=== PATIENT | female | born 1995 | race Caucasian/White ===

== ENCOUNTER 2019-02-22 14:46 | Emergency (ER) | payer BC ==
--- OUTSIDE RECORDS SUMMARY | 2019-02-22 14:58 | XMS REPORT | Continuity of Care Document ---
:[address] [facility] Care Team Providers Name Role Phone GEO VALLEJO Admitting Physician GEO VALLEJO Attending Physician Allergies and Intolerances No Known Allergies Medications RxNorm Medication Dose Route Instructions Start Date End Date Status BCP oral orally every day Active 3640 Doxycycline 100 mg oral orally every day Active 19790421 Naproxen 375 MG 375 mg oral orally every 12 Active Oral Tablet hours as needed. (15 days) (; administer with food or milk) Medications At Time Of Discharge RxNorm Medication Dose Route Instructions Start Date End Date Status BCP oral orally every day Active 3640 Doxycycline 100 mg oral orally every day Active 19790421 Naproxen 375 MG 375 mg oral orally every 12 Active Oral Tablet hours as needed. (15 days) (; administer with food or milk) Problems No Data in the system Procedures No data in the system Results Laboratory Results Order: CBC DIFF Specimen Source: Body Site : Legend: (G,H) = High, (GG,HH,CH,#H) = Above High Threshold, (#,L) = Low, (##, CL,#L,LL) = Below Low Threshold, (C,CC,CA,#A,A) = Abnormal LOINC Test Result Flag Range Units Date 6690-2 1WBC # Bld Auto 6.9 4.8-10.8 K/uL 12/01/2018 13:54 60807-7 1RBC # Bld 4.29 4.20-5.40 M/uL 12/01/2018 13:54 718-7 1Hgb Bld-mCnc 12.6 12.0-16.0 gm/dL 12/01/2018 13:54 4544-3 1Hct VFr Bld Auto 37.1 36.0-48.0 % 12/01/2018 13:54 787-2 1MCV RBC Auto 86.5 80.0-100.0 fL 12/01/2018 13:54 49756-6 1MCHC RBC-mCnc 34.1 30.0-36.5 % 12/01/2018 13:54 70602-3 1MCH RBC Qn 29.5 27.0-34.0 pg 12/01/2018 13:54 14385-4 1RDW RBC 11.4 11.0-15.0 % 12/01/2018 13:54 777-3 1Platelet # Bld Auto 196 130-450 K/uL 12/01/2018 13:54 53235-4 1PMV Bld Auto 8.8 6.0-12.0 fL 12/01/2018 13:54 751-8 1Neutrophils # Bld Auto 60 37-80 % 12/01/2018 13:54 20370-6 1Lymphocytes NFr Bld 31 10-50 % 12/01/2018 13:54 5905-5 1Monocytes NFr Bld Auto 8 0-12 % 12/01/2018 13:54 93309-4 1Eosinophil # Bld 1 <=8 % 12/01/2018 13:54 704-7 1Basophils # Bld Auto 0 <=3 % 12/01/2018 13:54 12155-3 1Neutrophils # Bld 4.1 1.8-8.6 K/uL 12/01/2018 13:54 731-0 1Lymphocytes # Bld Auto 2.1 0.5-5.0 K/uL 12/01/2018 13:54 742-7 1Monocytes # Bld Auto 0.6 0.0-1.3 K/uL 12/01/2018 13:54 23943-1 1Eosinophil # Bld 0.1 0.0-0.9 K/uL 12/01/2018 13:54 704-7 1Basophils # Bld Auto 0.0 0.0-0.3 K/ul 12/01/2018 13:54 Performing Lab Footnotes:[facility] - [id number] - [address] [place] [address] АЛЕКСАНДР [id number] Reference Laboratory Results Order: LYME AB with Confirmation (3 Days to Results) Specimen Source: Body Site: LOINC Code Test Result Flag Range Units Date 71931-1 1Borrelia burgdorferi <0.91 0.00-0.90 ISR 12/01/2018 Ab.IgG+Ig 1:54:00 PM Note: Negative <0.91 Equivocal 0.91 - 1.09 Positive >1.09 Performing Lab Footnotes:[facility] - [address], [place] [id number] JENNY B REYES1 Social History Code Code System Social History Description Dates Observed Observation [id number] SNOMED CT Current Smoking Unknown if ever Status smoked UNK AdministrativeGender Sex Assigned At Unknown Vital Signs No data in the system Goals Section No data in the system Health Concerns No data in the systemEncounter Diagnosis Date Code Code System Diagnosis Status R21 ICD10 RASH OTH NONSPECIFIC SKIN ERUPTION Active Advance Directives NOT APPLICABLE PT. IS A MINOR Directive Type Effective Date Logistical Engineer Notes Supporting Document Name Address Phone No Directive Type 04/16/2014 Not Specified Not Specified Not Specified None No specified 11:16:39 AM *RHIO - CONSENT IS YES Directive Type Effective Date Logistical Engineer Notes Supporting Document Name Address Phone No Directive Type 04/16/2014 Not Specified Not Specified Not Specified None No specified 10:16:38 AM Encounters Encounter Diagnosis Location Date RASH OTH NONSPECIFIC SKIN ERUPTION [facility] 12/01/2018 Family History Relationship: Father Health Problem Age At Onset Notes Crohns disease (Crohn's disease) Functional Status No data in the system Immunizations Vaccine Code Code System Vaccine Name Date Status UNKNOWN DATE OF LAST TETANUS Completed Medical Equipment No data in the system Mental Status No data in the system Assessment and Plan Assessments No data in the systemPlan Of Treatment No data in the systemPending Tests No data in the system Hospital Discharge Instructions No data in the system Reason for Visit No data in the system
--- OUTSIDE RECORDS SUMMARY | 2019-02-22 14:58 | XMS REPORT | Continuity of Care Document ---
:1995 External Reference #:[id number] Author Name Martin Roper MD Address [address] [place] [address] Care Team Providers Name Role Phone Isauro Hughes MD - Internal Medicine Care Team Information Leather Tanner Martin Roper MD - Ophthalmology Care Team Information Leather Tanner Problems Description No Information Available Social History Type Date Description Comments Sex Unknown Tobacco Use Start: Unknown Patient has never smoked Smoking Status Reviewed: 01/20/19 Patient has never smoked Allergies, Adverse Reactions, Alerts Description No Known Drug Allergies Medications Description No Active Medications Immunizations Description No Information Available Vital Signs Description No Information Available Results Description No Information Available Procedures Date Code Description Status 01/20/2019 27704 Eye Exam New Patient Comprehensive Completed Medical Devices Description No Information Available Encounters Description No Information Available Assessments Date Code Description Provider 01/20/2019 H53.121 Transient visual loss, right eye Martin Roper MD Plan of Treatment 01/20/2019 - Martin Roper MDH53.121 Transient visual loss, right eyeComments:- no sign of optic neuropathy- no sign of retinopathy- no sign of cranial neuropathy- no ophthalmic signs of increased intracranial pressure- duration, and in presence of history of migraine headache, could be most consistent with acephalgic, or ocular migraine- please call with ? or concernsFollow up:please call with ? or concerns Functional Status Description No Information Available Mental Status Description No Information Available Referrals Description No Information Available
[2019-02-22 15:04] VITALS: BP 111/61
[2019-02-22] MEDS ORDERED: Ibuprofen TAB* 600 MG PO ONE (15:04)
--- NOTE | 2019-02-22 15:04 | UC ---
FLU HPI - HPI Summary HPI Summary: 23 yo female presents with flu-like symptoms. She tells me that for the past 2 days she had felt feverish with fatigue, body aches, and sore throat. Has taken tylenol OTC with mild relief. Denies sinus symptoms, rash, cough, SOB, abdominal pain, n/v - does have a decreased appetite. - History of Current Complaint Chief Complaint: UCGeneralIllness Stated Complaint: CHILLS,BODY ACHES,FEVER Time Seen by Provider: 02/22/19 15:04 Hx Obtained From: Patient Hx Last Menstrual Period: 02/12/19 Onset/Duration: Sudden Onset Severity Currently: Moderate Severity Initially: Moderate Pain Intensity: 8 Pain Scale Used: 0-10 Numeric - Allergy/Home Medications Allergies/Adverse Reactions: Allergies Allergy/AdvReac Type Severity Reaction Status Date / Time No Known Allergies Allergy Verified 02/22/19 15:04 PMH/Surg Hx/FS Hx/Imm Hx - Additional Past Medical History Additional PMH: None - Surgical History Surgical History: None - Family History Known Family History: Positive: Non-Contributory - Social History Occupation: Student Lives: Dormitory/Roommates Alcohol Use: Occasionally Substance Use Type: None Smoking Status (MU): Never Smoked Tobacco Review of Systems All Other Systems Reviewed And Are Negative: No Constitutional: Positive: Fever, Fatigue, Other - Body aches Skin: Positive: Negative Eyes: Positive: Negative ENT: Positive: Sore Throat Respiratory: Positive: Negative Cardiovascular: Positive: Negative Gastrointestinal: Positive: Negative Neurological: Positive: Negative Psychological: Positive: Negative Physical Exam - Summary Physical Exam Summary: GENERAL: NAD. WDWN. No pain distress. SKIN: No rashes, sores, lesions, or open wounds. HEENT: Head: AT/NC Eyes: EOM intact. Conjunctiva clear without inflammation or discharge. Ears: Hearing grossly normal. TMs intact, no bulging, erythema, or edema. Nose: Nasal mucosa pink and moist. NTTP maxillary and frontal sinus. Throat: Posterior oropharynx with mild erythema and 3+ tonsillar enlargement. No exudates. Uvula midline. NECK: Supple. b/l shotty tonsillar LAD NTTP CHEST: CTAB. No accessory muscle use. Breathing comfortably and in no distress. CV: RRR. Pulses intact. Cap refill <2seconds NEURO: Alert. PSYCH: Age appropriate behavior. Triage Information Reviewed: Yes Vital Signs: Initial Vital Signs Temp 100.5 F 02/22/19 15:00 Pulse 122 02/22/19 15:00 Resp 16 02/22/19 15:00 BP 111/61 02/22/19 15:00 Pulse Ox 100 02/22/19 15:00 Laboratory Tests 02/22/19 02/22/19 02/22/19 15:11 15:17 15:38 POC Urine Color Yellow POC Urine Clarity Clear POC Urine pH 7.0 POC Ur Specif Friedens 1.020 POC Urine Protein 1+ A POC Ur Glucose (UA) Negative POC Urine Ketones Negative POC Urine Blood Trace-intact A POC Urine Nitrite Negative POC Urine Bilirubin 1+ A POC Urine Urobilinogen 1.0 POC U Leukocyte Esteras Trace A POC Ur Test Influenza A (Rapid) Negative Influenza B (Rapid) Negative Group A Strep Rapid Negative 02/22/19 15:40 POC Urine Color POC Urine Clarity POC Urine pH POC Ur Specif Friedens POC Urine Protein POC Ur Glucose (UA) POC Urine Ketones POC Urine Blood POC Urine Nitrite POC Urine Bilirubin POC Urine Urobilinogen POC U Leukocyte Esteras POC Ur Test Negative Influenza A (Rapid) Influenza B (Rapid) Group A Strep Rapid Vital Signs Reviewed: Yes Flu Course/Dx - Course Course Of Treatment: POC strep and flu negative. Suspect tonsillitis. Will draw for CBC and mono. - Differential Dx/Diagnosis Provider Diagnosis: Tonsillitis Discharge ED - Sign-Out/Discharge Documenting (check all that apply): Patient Departure All imaging exams completed and their final reports reviewed: No Studies - Discharge Plan Condition: Stable Disposition: HOME Prescriptions: Azithromycin TAB* [Zithromax TAB (Z-JEOVANY) 250 mg #6 tabs] 2 tab PO .TODAY, THEN 1 DAILY #1 jeovany Patient Education Materials: Tonsillitis (ED) Forms: *School Release Referrals: Martha ALEGRIA,Isauro Che [Primary Care Provider] - Additional Instructions: If you develop a fever, shortness of breath, chest pain, new or worsening symptoms - please call your PCP or go to the ED immediately. - Billing Disposition and Condition Condition: STABLE Disposition: Home
[2019-02-22 15:29] LABS: Influenza A Molecular NEGATIVE (Negative); Influenza B Molecular NEGATIVE (Negative)
[2019-02-23 11:36] LABS: ABS Lymphocytes 0.8 10^3/ul (1.0-4.8); ABS Neutrophils 16.2 10^3/ul (1.5-7.7); Hematocrit 39 % (35-47); Hemoglobin 13.1 g/dL (12.0-16.0); Lymphocyte % 4.3 %; Mean Corpuscular HGB Conc 33 g/dL (31-36); Mean Corpuscular Hemoglobin 28 pg (27-31); Mean Corpuscular Volume 85 fL (80-97); Mean Platelet Volume 9.7 fL (7.4-10.4); Nucleated Red Blood Cells % 0.1; Platelet Count 205 10^3/uL (150-450); Red Blood Count 4.65 10^6 /uL (3.70-4.87); Red Cell Distribution Width 14 % (10-15)
[2019-02-24 16:17] LABS: EBV Capsid Ag IgG Ab Positive (Negative); EBV Capsid Ag IgM Ab Equivocal (Negative); Epstein-Barr Nuclear Antigen Positive (Negative)
== END 2019-02-22 15:48 | disposition home or self-care (01) ==
LOC: UCCORT 14:46
DX: J03.90 Acute tonsillitis, unspecified (principal)
CPT/HCPCS: 36415; 81003; 84702; 85025; 86308; 86664; 86665; 87086; 87651; 99212; A9270-GY; G0463

== ENCOUNTER 2019-06-11 17:04 | Emergency (ER) | payer BC ==
[2019-06-11 17:38] VITALS: BP 129/67
--- NOTE | 2019-06-11 17:41 | UC ---
Throat Pain/Nasal Guido HPI - HPI Summary HPI Summary: 23-year-old college female who has had cold symptoms for approximately 2 weeks and now has had a sore throat for the past 4 days. She states occasionally she will cough of yellow sputum. She denies any sinus pressure or postnasal drainage. She denies any fever or chills. - History of Current Complaint Chief Complaint: UCGeneralIllness Stated Complaint: SORE THROAT Time Seen by Provider: 06/11/19 17:29 Hx Obtained From: Patient Hx Last Menstrual Period: 06/04/19 ?: No Onset/Duration: Gradual Onset Severity: Mild Pain Intensity: 8 Cough: Productive - Occasional productive cough of yellow sputum. No shortness of breath. Associated Signs & Symptoms: Positive: Negative - Allergies/Home Medications Allergies/Adverse Reactions: Allergies Allergy/AdvReac Type Severity Reaction Status Date / Time No Known Allergies Allergy Verified 06/11/19 17:38 Home Medications: Home Medications Oral Contraceptives DAILY 06/11/19 [History] PMH/Surg Hx/FS Hx/Imm Hx Previously Healthy: Yes - Surgical History Surgical History: None - Family History Known Family History: Positive: Non-Contributory - Social History Occupation: Student Lives: Dormitory/Roommates Alcohol Use: Occasionally Substance Use Type: None Smoking Status (MU): Never Smoked Tobacco Review of Systems All Other Systems Reviewed And Are Negative: Yes ENT: Positive: Sore Throat Respiratory: Positive: Cough - Occasional productive cough of yellow sputum. Patient has had cold symptoms over the past 2 weeks. Is Patient Immunocompromised?: No Physical Exam Triage Information Reviewed: Yes Appearance: Well-Appearing, No Pain Distress, Well-Nourished Vital Signs: Initial Vital Signs Temp 99.2 F 06/11/19 17:34 Pulse 81 06/11/19 17:34 Resp 16 06/11/19 17:34 BP 129/67 06/11/19 17:34 Pulse Ox 100 06/11/19 17:34 Vital Signs Reviewed: Yes Eyes: Positive: Conjunctiva Clear ENT: Positive: Pharyngeal erythema, TMs normal, Uvula midline. Negative: Tonsillar swelling, Tonsillar exudate, Trismus, Muffled voice, Hoarse voice, Sinus tenderness Neck: Positive: Supple, Nontender, No Lymphadenopathy Respiratory: Positive: Lungs clear, Normal breath sounds, No respiratory distress, No accessory muscle use Cardiovascular: Positive: RRR, No Murmur, Pulses Normal, Brisk Capillary Refill Musculoskeletal Exam: Normal Neurological Exam: Normal Psychological Exam: Normal Skin Exam: Normal Throat Pain/Nasal Course/Dx - Course Course Of Treatment: Patient is comfortable here and in no distress. She would like to avoid an antibiotic stating that "I've been on an antibiotic 2 times a month every month this year for one thing or another". I advised her she can do warm saltwater gargles, throat lozenges and follow-up at [facility] if she has any worsening symptoms or if she starts running a fever. Patient is agreeable to this plan of action. - Differential Dx/Diagnosis Provider Diagnosis: Pharyngitis Discharge ED - Sign-Out/Discharge Documenting (check all that apply): Patient Departure All imaging exams completed and their final reports reviewed: No Studies - Discharge Plan Condition: Good Disposition: HOME Patient Education Materials: Pharyngitis (ED) Referrals: Martha ALEGRIA,Isauro Che [Primary Care Provider] - Additional Instructions: Increase fluids, warm salt water gargles, throat lozenges. Follow up at [facility] if no improvement in 3 or 4 days. We will call you if the throat culture comes back positive for strep. - Billing Disposition and Condition Condition: GOOD Disposition: Home
== END 2019-06-11 18:18 | disposition home or self-care (01) ==
LOC: UCCORT 17:04
DX: J02.9 Acute pharyngitis, unspecified (principal); R05 Cough
CPT/HCPCS: 87070; 87651; 99211; G0463